=== PATIENT | male | born 1990 | race Caucasian/White ===

== ENCOUNTER 2023-07-31 12:01 | Emergency (ER) | payer OTHER, MEDICAID, SELFPAY ==
[2023-07-31 12:10] VITALS: BP 133/75; PULSE 73; RESP 18; TEMP 36.8; O2SAT 99; BMI 20.9
--- NOTE | 2023-07-31 12:33 | DI.RAD.S_ITS ---
PROCEDURE: XR CHEST 1V INDICATIONS: chest pain TECHNIQUE: One view of the chest was acquired. COMPARISON: None. FINDINGS: Surgical changes and devices: None. Lungs and pleura: Lungs are clear. No pleural effusions or pneumothorax. Mediastinum: Mediastinal contours appear normal. Heart size is normal. Bones and chest wall: No suspicious bony lesions. Overlying soft tissues appear unremarkable. IMPRESSION: No acute cardiopulmonary abnormality is seen. Dictated by: Arely Avila M.D. on 07/31/2023 at 13:44 Approved by: Arely Avila M.D. on 07/31/2023 at 13:44
[2023-07-31 13:28] LABS: Add Manual Diff / Slide Review NO; Basophils Absolute Auto 0 /uL (0-100); Eosinophils Absolute Auto 300 /uL (0-450); Eosinophils Percent Auto 5.6 % (2-4); Hematocrit 44.6 % (41-53); Lymphocytes Absolute Auto 1100 /uL (1100-4500); Lymphocytes Percent Auto 22.8 % (25-40); Mean Corpuscular HGB Conc 33.7 % (30-36); Mean Corpuscular Hemoglobin 30.6 PG (26-34); Mean Corpuscular Volume 90.9 fL (80-100); Monocytes Absolute Auto 500 /uL (0-900); Monocytes Percent Auto 9.3 % (3-14); Neutrophils Absolute Auto 3000 /uL (1500-7000); Neutrophils Percent Auto 61.3 % (50-75); Platelet Count 190 X10^3/uL (150-400); Red Cell Distribution Width 13.1 % (11.6-14.8); White Blood Cell Count 4.9 X10^3/uL (4.5-11.0)
[2023-07-31 13:32] LABS: INR 0.9 (0.9-1.3); Prothrombin Time 10.7 SECONDS (9.4-12.5)
[2023-07-31 13:35] LABS: PTT Partial Thromboplastin Tim 28 SECONDS (25.1-36.5)
[2023-07-31 13:51] LABS: Alanine Aminotransferase 21 IU/L (<50); Albumin 4.3 g/dL (3.5-5.0); Albumin Globulin Ratio 1.4 (1.0-2.8); Alkaline Phosphatase 36 U/L (38-126); Aspartate Aminotransferase 28 IU/L (17-59); BUN Creatinine Ratio 23.9 (6-22); Bilirubin Total 0.7 mg/dL (0.2-1.3); Blood Urea Nitrogen 17 mg/dL (9-20); Calcium 9.3 mg/dL (8.4-10.2); Carbon Dioxide 27 mmol/L (22-32); Chloride 104 mmol/L (98-107); Creatine Kinase 45 U/L (55-170); Estimated Glomerular Filt Rate > 60 mL/min (>60); Globulin 3.1 g/dL (1.7-4.1); Glucose 114 mg/dL (70-100); HEMOLYSIS < 15 (0-50); Lipase 40 U/L (23-300); Magnesium 2.2 mg/dL (1.6-2.3); Potassium 3.8 mmol/L (3.4-5.1); Sodium 138 mmol/L (137-145); Total Protein 7.4 g/dL (6.3-8.2)
[2023-07-31 14:02] LABS: Troponin I < 0.012 ng/mL (0.01-0.034)
--- NOTE | 2023-07-31 14:24 | ED_ITS ---
HPI - Chest Pain <Giorgi Rai PA-C - Last Filed: 07/31/23 15:24> General Chief Complaint: Chest Pain Stated Complaint: t-3 pain in arm sob headache chst pain Time Seen by Provider: 07/31/23 14:15 Source: patient Mode of arrival: Ambulatory History of Present Illness HPI narrative: 33-year-old male presents to the ED with 3 days of left arm pain and numbness. Patient describes the sensation as pins and needles like his arm went to sleep and woke up. The sensation is intermittent. Patient's works in a kitchen and states that he experienced the arm pain 3 days ago, he also had some lightheadedness and chest pain along with it. Since then the arm pain has remained, other symptoms have subsided. 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 In the ED, patient denies chest pain, shortness of breath, lightheadedness or dizziness. Patient also states that he might have felt anxious when this happened 3 days ago. Patient is establishing care with a new PCP at [place]. Patient also states that he consumes a significant amount of alcohol and smoke cigarettes. Related Data Previous Rx's Medication Instructions Recorded benzonatate 200 mg capsule 200 mg PO TID PRN cough #30 caps 07/31/23 Allergies Allergy/AdvReac Type Severity Reaction Status Date / Time No Known Drug Allergies Allergy Verified 07/31/23 12:10 Review of Systems <Giorgi Rai PA-C - Last Filed: 07/31/23 15:24> Constitutional Constitutional: Denies chills, Denies fatigue, Denies fever(s), Denies frequent falls, Denies lethargy and Denies weakness Eyes Eyes: Denies change in vision, Denies eye discharge, Denies irritation and Denies loss of vision ENT Ears, Nose, Mouth, and Throat: Denies change in voice, Reports dizziness, Denies neck pain, Denies sore throat and Denies throat swelling Cardiovascular Cardiovascular: Reports chest pain, Denies irregular heart rhythm, Reports lightheadedness, Denies palpitations, Denies dyspnea, Denies dyspnea on exertion and Denies orthopnea Respiratory Respiratory: Denies cough, Denies dyspnea, Denies dyspnea on exertion and Denies wheezing Gastrointestinal Gastrointestinal: Denies abdominal pain, Denies change in bowel habits, Denies diarrhea, Denies nausea and Denies vomiting Musculoskeletal Musculoskeletal: Denies neck pain and Reports numbness Comments: Left arm pain Integumentary/Breasts Skin/Breast: Denies pruritus, Denies erythema, Denies rash and Denies wounds Neurologic Neurologic: Denies behavioral changes, Denies confusion, Reports dizziness, Denies frequent falls, Denies loss of vision, Reports numbness and Denies weakness Psychiatric Psychiatric: Reports anxiety, Denies behavioral changes, Denies confusion, Denies depression, Denies homicidal ideation and Denies suicidal ideation Endocrine Endocrine: Denies fatigue, Denies flushing and Denies palpitations Hematologic/Lymphatic Hematologic/Lymphatic: Denies easy bruising Allergic/Immunologic Allergic/Immunologic: Denies urticaria, Denies throat swelling and Denies wheezing Patient History <Giorgi Rai PA-C - Last Filed: 07/31/23 15:24> Social History Smoking Status: Current every day smoker Smoking Status: Current every day smoker tobacco type: cigarettes alcohol intake frequency: 3 or more drinks per day Substance Use Type: marijuana Exam <Giorgi Rai PA-C - Last Filed: 07/31/23 15:24> Narrative Exam Narrative: Const General:?cooperative, healthy appearing and comfortable [facility] Head:?normal to inspection Ears:?hearing grossly normal bilaterally Nose:?external nose normal Face and sinus:?normal facial exam and sinuses nontender Mouth:?oral mucosae normal Throat:?posterior oropharynx normal Eyes General:?appearance normal, both eyes and all related structures Neck Neck:?normal visual inspection and no lymphadenopathy noted Resp Effort & Inspection:?normal respiratory effort Auscultation:?clear to auscultation bilaterally Cardio Rate:?regular rate Rhythm:?regular rhythm Musculoskeletal Full range of motion. Strength and sensation is intact. No swelling or bruising. No tenderness to palpation. Neuro General:?patient alert, patient awake and patient oriented x3 Initial Vital Signs Initial Vital Signs: Vital Signs Temperature 98.2 F 07/31/23 12:10 Pulse Rate 73 07/31/23 12:10 Respiratory Rate 18 07/31/23 12:10 Blood Pressure 133/75 07/31/23 12:10 Pulse Oximetry 99 07/31/23 12:10 Oxygen Delivery Method Room Air 02/06/24 12:10 <Palmira Fried DO - Last Filed: 07/31/23 19:08> Initial Vital Signs Initial Vital Signs: Vital Signs Temperature 98.2 F 07/31/23 12:10 Pulse Rate 73 07/31/23 12:10 Respiratory Rate 18 07/31/23 12:10 Blood Pressure 133/75 07/31/23 12:10 Pulse Oximetry 99 07/31/23 12:10 Oxygen Delivery Method Room Air 07/31/23 12:10 Course <ANATOLIY Hugo Last Filed: 07/31/23 15:24> Orders Ordered: ED Orders 07/31/23 12:33 XR chest 1V Stat EKG-12 Lead Stat 07/31/23 13:00 Complete Blood Count AUTO DIFF Stat Comprehensive Metabolic Panel Stat Lipase Stat Magnesium Stat PTT Partial Thromboplastin Rick Stat Prothrombin Time INR Stat Troponin & CK Cardiac Panel Stat Vital Signs Vital signs: Vital Signs - 8 hr 07/31/23 12:10 07/31/23 14:47 Temperature 98.2 F Pulse Rate 73 85 Respiratory Rate 18 16 Blood Pressure 133/75 134/88 Pulse Oximetry 99 97 Oxygen Delivery Method Room Air Room Air <Palmira Fried DO - Last Filed: 07/31/23 19:08> Orders Ordered: ED Orders 07/31/23 12:33 XR chest 1V Stat EKG-12 Lead Stat 07/31/23 13:00 Complete Blood Count AUTO DIFF Stat Comprehensive Metabolic Panel Stat Lipase Stat Magnesium Stat PTT Partial Thromboplastin Rick Stat Prothrombin Time INR Stat Troponin & CK Cardiac Panel Stat Vital Signs Vital signs: Vital Signs - 8 hr 07/31/23 12:10 07/31/23 14:47 Temperature 98.2 F Pulse Rate 73 85 Respiratory Rate 18 16 Blood Pressure 133/75 134/88 Pulse Oximetry 99 97 Oxygen Delivery Method Room Air Room Air MDM - Chest Pain <ANATOLIY Hugo Last Filed: 07/31/23 15:24> Lab Data 07/31/23 13:00 07/31/23 13:00 Labs: Lab Results 07/31/23 Range/Units 13:00 WBC 4.9 (4.5-11.0) X10^3/uL RBC 4.90 (4.5-5.9) X10^6/uL Hgb 15.0 (13.5-17.5) g/dL Hct 44.6 (41-53) % MCV 90.9 (80-100) fL MCH 30.6 (26-34) PG MCHC 33.7 (30-36) % RDW 13.1 (11.6-14.8) % Plt Count 190 (150-400) X10^3/uL Neut % (Auto) 61.3 (50-75) % Lymph % (Auto) 22.8 L (25-40) % [place] % (Auto) 9.3 (3-14) % Eos % (Auto) 5.6 H (2-4) % Baso % (Auto) 1.0 (0-2) % Neut # (Auto) 3000 (2792-1505) /uL Lymph # (Auto) 1100 (6061-4476) /uL [place] # (Auto) 500 (0-900) /uL Eos # (Auto) 300 (0-450) /uL Baso # (Auto) 0 (0-100) /uL PT 10.7 (9.4-12.5) SECONDS INR 0.9 (0.9-1.3) APTT 28 (25.1-36.5) SECONDS Sodium 138 (137-145) mmol/L Potassium 3.8 (3.4-5.1) mmol/L Chloride 104 (98-107) mmol/L Carbon Dioxide 27 (22-32) mmol/L BUN 17 (9-20) mg/dL Creatinine 0.71 (0.66-1.25) mg/dL Estimated GFR > 60 (>60) mL/min BUN/Creatinine Ratio 23.9 H (6-22) Glucose 114 H (70-100) mg/dL Calcium 9.3 (8.4-10.2) mg/dL Magnesium 2.2 (1.6-2.3) mg/dL Total Bilirubin 0.7 (0.2-1.3) mg/dL AST 28 (17-59) IU/L ALT 21 (<50) IU/L Alkaline Phosphatase 36 L (38-126) U/L Total Creatine Kinase 45 L (55-170) U/L Troponin I < 0.012 (0.01-0.034) ng/mL Total Protein 7.4 (6.3-8.2) g/dL Albumin 4.3 (3.5-5.0) g/dL Globulin 3.1 (1.7-4.1) g/dL Albumin/Globulin Ratio 1.4 (1.0-2.8) Lipase 40 (23-300) U/L MDM Narrative Medical decision making narrative: 33-year-old male presents to the ED with 3 days of left arm pain and numbness. ACS workup was initiated to rule out cardiopulmonary etiology. EKG, chest x- ray, labs, troponin within normal limits. Physical exam and history is most consistent with a musculoskeletal etiology. Discussed findings with patient. Patient agrees to follow-up with his new PCP in [place] for referral to physical therapy and further evaluation. ED return precautions were discussed with patient. Patient verbalized understanding. Medical records reviewed: Yes PS: Tessalon Perles was prescribed for this patient erroneously. Called the [facility] pharmacy at [place], spoke with the pharmacist and canceled the order. <Palmira Fried, DO - Last Filed: 07/31/23 19:08> Lab Data Labs: Lab Results 07/31/23 Range/Units 13:00 WBC 4.9 (4.5-11.0) X10^3/uL RBC 4.90 (4.5-5.9) X10^6/uL Hgb 15.0 (13.5-17.5) g/dL Hct 44.6 (41-53) % MCV 90.9 (80-100) fL MCH 30.6 (26-34) PG MCHC 33.7 (30-36) % RDW 13.1 (11.6-14.8) % Plt Count 190 (150-400) X10^3/uL Neut % (Auto) 61.3 (50-75) % Lymph % (Auto) 22.8 L (25-40) % [place] % (Auto) 9.3 (3-14) % Eos % (Auto) 5.6 H (2-4) % Baso % (Auto) 1.0 (0-2) % Neut # (Auto) 3000 (1369-1645) /uL Lymph # (Auto) 1100 (8725-9871) /uL [place] # (Auto) 500 (0-900) /uL Eos # (Auto) 300 (0-450) /uL Baso # (Auto) 0 (0-100) /uL PT 10.7 (9.4-12.5) SECONDS INR 0.9 (0.9-1.3) APTT 28 (25.1-36.5) SECONDS Sodium 138 (137-145) mmol/L Potassium 3.8 (3.4-5.1) mmol/L Chloride 104 (98-107) mmol/L Carbon Dioxide 27 (22-32) mmol/L BUN 17 (9-20) mg/dL Creatinine 0.71 (0.66-1.25) mg/dL Estimated GFR > 60 (>60) mL/min BUN/Creatinine Ratio 23.9 H (6-22) Glucose 114 H (70-100) mg/dL Calcium 9.3 (8.4-10.2) mg/dL Magnesium 2.2 (1.6-2.3) mg/dL Total Bilirubin 0.7 (0.2-1.3) mg/dL AST 28 (17-59) IU/L ALT 21 (<50) IU/L Alkaline Phosphatase 36 L (38-126) U/L Total Creatine Kinase 45 L (55-170) U/L Troponin I < 0.012 (0.01-0.034) ng/mL Total Protein 7.4 (6.3-8.2) g/dL Albumin 4.3 (3.5-5.0) g/dL Globulin 3.1 (1.7-4.1) g/dL Albumin/Globulin Ratio 1.4 (1.0-2.8) Lipase 40 (23-300) U/L Discharge Plan Departure Patient Disposition: Home Clinical Impression: Arm pain Qualifiers: Laterality: left Qualified Code(s): M79.602 - Pain in left arm Instructions: DI for Arm Pain Activity Restrictions/Additional Instructions: You were evaluated in the ED today for arm pain. Your labs, EKG and chest x-ray were normal today. Your symptoms are most consistent with a musculoskeletal issue. Please continue to stay well hydrated. Please follow-up with your PCP as soon as possible for referral to physical therapy. Return to the ED if you have worsening symptoms, persistent vomiting, chest pain, shortness of breath. Prescriptions: New benzonatate 200 mg capsule 200 mg PO TID PRN (Reason: cough) Qty: 30 0RF Stand Alone Forms: Patient Portal/API ED Sign-out <Palmira Fried DO - Last Filed: 07/31/23 19:08> Cosign ED Attending Cosignature Attestation: I was immediately available in the department for consultation.
[2023-07-31 14:47] VITALS: BP 134/88; PULSE 85; RESP 16; O2SAT 97
== END 2023-07-31 15:29 | disposition home or self-care (01) ==
PROVIDERS: Emergency Medicine; Emergency Provider Student in an Organized Health Care Education/Training Program
DX: M79.602 Pain in left arm (principal); R07.9 Chest pain, unspecified
CPT/HCPCS: 36415; 71045; 80053; 82550; 83690; 83735; 84484; 85025; 85610; 85730; 93005; 93010; 99283; 99284

== ENCOUNTER 2024-11-23 10:03 | Emergency (ER) | payer SELFPAY ==
[2024-11-23 10:13] VITALS: BP 134/76; PULSE 70; RESP 18; TEMP 36.6; O2SAT 98; BMI 20.3
--- NOTE | 2024-11-23 11:48 | ED.WOUNDLAC ---
HPI - Wound/Laceration General Chief Complaint: Wound/Laceration Stated Complaint: Needs Stiches on back in head Time Seen by Provider: 11/23/24 11:01 Source: patient Mode of arrival: Family Vehicle History of Present Illness HPI narrative: Pt is a previously healthy 34 y/o M presenting with head injury. Pt states that he was jumping into bed, but lives on a sail boat and the top of the bed had a nut and bold protruding on which he hit his head. Pt denies LOC following this injury. He was seen by medics who placed a dressing, now presenting for further evaluation and management. Injury occurred on the night prior to presentation. pt otherwise denies headache, no vision changes, nausea or vomiting. He did not sustain further injury. He has not history of issues with bleeding or clotting problems. Place: home Context: accidental Related Data Previous Rx's Medication Instructions Recorded benzonatate 200 mg capsule 200 mg PO TID PRN cough #30 caps 07/31/23 Allergies Allergy/AdvReac Type Severity Reaction Status Date / Time No Known Drug Allergies Allergy Verified 11/23/24 10:13 Review of Systems Review of Systems ROS Unobtainable: All systems reviewed & are unremarkable except as noted in HPI and below Constitutional Constitutional: Denies fever(s), Denies headache(s) and Denies weakness Eyes Eyes: Denies blurry vision, Denies change in vision and Denies loss of vision ENT Ears, Nose, Mouth, and Throat: Denies headache(s) Cardiovascular Cardiovascular: Denies syncope and Denies dyspnea Respiratory Respiratory: Denies dyspnea Neurologic Neurologic: Denies syncope, Denies headache(s), Denies loss of vision and Denies weakness Psychiatric Psychiatric: Denies suicidal ideation Hematologic/Lymphatic Hematologic/Lymphatic: Denies easy bleeding and Denies easy bruising Patient History Social History Smoking Status: Current every day smoker Smoking Status: Current every day smoker tobacco type: cigarettes alcohol intake frequency: 3 or more drinks per day Alcohol type: beer and hard liquor Exam Narrative Exam Narrative: Linear laceration over the occipital scalp, 9 cm in length Initial Vital Signs Initial Vital Signs: Vital Signs Temperature 98 F 11/23/24 10:13 Pulse Rate 70 11/23/24 10:13 Respiratory Rate 18 11/23/24 10:13 Blood Pressure 134/76 11/23/24 10:13 Pulse Oximetry 98 11/23/24 10:13 Oxygen Delivery Method Room Air 11/23/24 10:13 Const General: cooperative and No acute distress HENMT Head: laceration (linear laceration over posterior/occipital scalp, hemostatic/slow oozing) Resp Effort & Inspection: normal respiratory effort and able to speak in complete sentences Cardio Rate: regular rate Rhythm: regular rhythm Back/Spine/Pelvis Cervical Spine: cervical ROM normal Skin Trauma: laceration Neuro General: patient alert, patient oriented x3 and no focal motor deficits Cognition: normal cognition Speech: speech normal Extrem General: normal to inspection and full ROM Psych Appearance: grossly normal Mental Status: mental status grossly normal Procedures Laceration Repair Laceration 1: Time of procedure: 11:01 Site: scalp Side (If applicable): left Size (cm): 8 Description: linear Depth: simple, single layer Pre-repair: wound explored, irrigated extensively and deep structures intact Skin layer closed with: altagracia Number of sutures: 6 Technique: simple, interrupted Course Orders Ordered: Discontinued Medications Bacitracin (Bacitracin Oint 0.9 Gm Pckt) 1 applic TOP NOW ONE Stop: 11/23/24 11:49 Last Admin: 11/23/24 11:53 Dose: 1 applic Documented By: KODI Diphtheria/Tetanus/Acell Pertussis (Tet,Diph,Pertuss(Acell),Vac/Pf 0.5 Ml Syringe) 0.5 ml IM .ONCE ONE Stop: 11/23/24 10:21 Last Admin: 11/23/24 11:51 Dose: 0.5 ml Documented By: KODI Vital Signs Vital signs: Vital Signs - 8 hr 11/23/24 10:13 Temperature 98 F Pulse Rate 70 Respiratory Rate 18 Blood Pressure 134/76 Pulse Oximetry 98 Oxygen Delivery Method Room Air MDM - Wound/Laceration Differential Diagnosis Differential diagnosis: Likely laceration, avulsion of skin and other (Head injury, concussion) Medical Records Attestation: I reviewed the patient's medical records. [facility] Narrative Medical decision making narrative: History and exam as above. Pt is a 34 y/o m without significant pmhx presenting with laceration following head injury. Low suspicion for intracranial pathology and based on [place] ct head rules will defer CT imaging at this time. Laceration washed out and repaired as above without complication. Patient counseled regarding wound care, follow up and wound check instructions. Provided with return precautions, all questions answered. Discharged in stable condition. Discharge Plan Departure Patient Disposition: Home Clinical Impression: Laceration Head injury due to trauma Qualifiers: Encounter type: initial encounter Qualified Code(s): S09.90XA - Unspecified injury of head, initial encounter Instructions: DI for Laceration Repair Activity Restrictions/Additional Instructions: You were seen in the emergency department for your head injury. Your laceration was repaired here with altagracia. Please follow-up for wound recheck and staple removal in 7-10 days. This can be with your primary care provider, urgent care, or in the emergency department. Please keep the wound dry and clean for the next 24 hours, after that it is okay to wash carefully around it. You can use bacitracin ointment in order to help minimize potential infection. If you develop increasing redness, swelling, warmth, discharge or other signs of infection, please return to the emergency department for further evaluation. Prescriptions: No Action benzonatate 200 mg capsule 200 mg PO TID PRN (Reason: cough) Qty: 30 0RF Stand Alone Forms: Patient Portal/API/Survey
[2024-11-23] MEDS: TET,DIPH,PERTUSS(ACELL),VAC/PF 0.5 ML SYRINGE IM (11:51)
[2024-11-23] MEDS: BACITRACIN OINT 0.9 GM PCKT 1 APPLIC TOP (11:53)
== END 2024-11-23 12:08 | disposition home or self-care (01) ==
PROVIDERS: Emergency Provider Student in an Organized Health Care Education/Training Program
DX: S01.01XA Laceration without foreign body of scalp, initial encounter (principal); W22.8XXA Striking against or struck by other objects, initial encounter; Y92.814 Boat as the place of occurrence of the external cause; Z23 Encounter for immunization
CPT/HCPCS: 12004; 90471; 99283; 90715